=== PATIENT | male | born 1985 | race Caucasian/White ===

== ENCOUNTER 2016-12-15 23:29 | Emergency (ER) | payer OTHER ==
[~2016-12-15 23:29] MED LIST: ACETAMINOPHEN PO; CIPRO PO; DEPAKOTE PO; FLOMAX0.4 M1 PO; GEODAN PO; NORCO 5/325 TAB1 TAB PO; ZOFRANODT PO
[2016-12-16] MEDS ORDERED: NO MEDICATIONS (00:35)
[2016-12-16] MEDS ORDERED: PRILOSEC PO (02:28)
== END 2016-12-15 23:59 | disposition left against medical advice (07) ==
LOC: CED 23:29
DX: Z53.21 Procedure and treatment not carried out due to patient leaving prior to being seen by health care provider (principal)

== ENCOUNTER 2016-12-16 00:17 | Emergency (ER) | payer BC, OTHER ==
[2016-12-16] MEDS ORDERED: NO MEDICATIONS (00:35)
[2016-12-16 01:36] LABS: BASOPHIL# 0.1 X10e3 (0-0.3); BASOPHIL% 0.9 % (0-2.5); DIFF IND NO; EOSINOPHIL# 0.3 X10e3 (0-0.7); HEMATOCRIT 41.4 % (38.0-50.0); HEMOGLOBIN 14.5 gm/dL (13.0-16.0); LYMPHOCYTE# 3.2 X10e3 (1.0-3.5); LYMPHOCYTE% 38.5 % (17.0-45.0); MEAN CELL VOLUME 87.5 FL (83-96); MEAN CORPUSCULAR HEMOGLOBIN 30.5 PG (28-34); MEAN CORPUSCULAR HGB CONC 34.9 g/dL (30-36); MEAN PLATELET VOLUME 7.8 FL (6.5-11.5); MONOCYTE# 0.8 X10e3 (0-1.0); MONOCYTE% 9.2 % (3.0-12.0); NEUTROPHIL% 48.4 % (40-75); PLATELET COUNT 197 X10e3 (140-420); RED BLOOD COUNT 4.74 X10e (3.90-5.60); RED CELL DISTRIBUTION WIDTH 13.1 % (11.0-15.5); WHITE BLOOD COUNT 8.4 X10e3 (4.0-10.5)
[2016-12-16 01:55] LABS: ALBUMIN SERUM 4.7 g/dL (3.5-5.0); BILIRUBIN, DIRECT 0.1 mg/dL (0.0-0.2); BILIRUBIN,INDIRECT 0.2 mg/dL (0.0-0.9); BILIRUBIN,TOTAL 0.3 mg/dL (0.2-2.0); BUN/CREATININE RATIO 13.33; CREATININE SERUM 0.9 mg/dL (0.6-1.4); GLOM FILT RATE Estimated 111.8 mL/min (>60); POTASSIUM 3.9 mmol/L (3.5-5.1); PROTEIN TOTAL SERUM 7.3 g/dL (6.0-8.3)
[2016-12-16] MEDS ORDERED: PRILOSEC PO (02:28)
== END 2016-12-16 02:28 | disposition home or self-care (01) ==
LOC: SED 00:17
PROVIDERS: Emergency Medicine
DX: K29.00 Acute gastritis without bleeding (principal); Z90.49 Acquired absence of other specified parts of digestive tract; Z79.899 Other long term (current) drug therapy
CPT/HCPCS: 36415; 80048; 80076; 82150; 83690; 85025; 99284